=== PATIENT | female | born 2000 | race Caucasian/White ===

== ENCOUNTER 2021-07-24 08:23 | Inpatient (IN) | payer OTHER, SELFPAY ==
[2021-07-24 08:31] VITALS: BP 136/87; PULSE 74; RESP 18; TEMP 36.5; O2SAT 100; BMI 25.0
--- NOTE | 2021-07-24 09:07 | ECG_ITS ---
Test Reason : MED CLEARANCE Blood Pressure : / mmHG Vent. Rate : 061 BPM Atrial Rate : 061 BPM P-R Int : 164 ms QRS Dur : 082 ms QT Int : 414 ms P-R-T Axes : 015 027 014 degrees QTc Int : 416 ms Normal sinus rhythm Normal ECG No previous ECGs available Referred By: Sachi Liao Electronically Signed By:RENATO MATHIS MD
--- NOTE | 2021-07-24 09:14 | ED.PSYCH ---
HPI - Psych General Chief Complaint: Psychiatric Symptoms Stated Complaint: CRISI SI Time Seen by Provider: 07/24/21 09:06 Source: patient Mode of arrival: ambulatory Limitations: no limitations History of Present Illness HPI Narrative: states she took 7 tabs of mix 200mg motrin and thinks 25mg benadryl around 750AM from a travel bag this AM complaint: suicidal ideation and feels depressed Onset (ago): day(s) Duration: getting worse History of same: Yes Relieving factors: none Exacerbating factors: none Context: significant life stressor Associated psychiatric symptoms: depression and suicidal ideation Associated symptoms: denies other symptoms Treatments prior to arrival: none If self harm: admits thoughts of self harm, has plan and has acted on plan Related Data Home Medications Medication Instructions Recorded Confirmed lamotrigine 100 mg tablet 1 tab PO BEDTIME 07/24/21 07/24/21 Allergies Allergy/AdvReac Type Severity Reaction Status Date / Time Unable to Assess Allergy Verified 07/24/21 09:07 Review of Systems Review of Systems: Constitutional : No Fever, No Chills ENT/Mouth : No Ear Pain, No Nasal Congestion, No sore throat Eyes: No Eye Pain, No Swelling, No Redness Cardiovascular : No Chest Pain, No SOB Respiratory : No Cough, No Sputum, No Dyspnea Gastrointestinal : No Nausea, No Vomiting, No Diarrhea, No Hematochezia, No Melena Genitourinary : No Dysuria, No Urinary Frequency, No Hematuria Musculoskeletal : No Myalgias Skin : No Skin Lesions, No rash Neuro : No Weakness, No Numbness, No Paresthesias, No Dizziness, No Headache Psych : positive Anxiety, positive Depression, positive SI no HI Heme/Lymph: No Lymphadenopathy Endocrine : No Polyuria, No Polydipsia All other systems reviewed and are negative [facility] Past Medical History Attestation statement: The following information was validated with the patient. Medical History Bipolar 1 disorder, depressed Social History Social History (Updated 07/24/21 @ 09:52 by Sachi Liao DO) Patient Tobacco Use Status: Current everyday Tobacco user Use of substances other than those prescribed or required for medical reasons: No Advance Directives: No Advance Directives Information Provided: No Healthcare Proxy: No Guardian: No Patient : No Physical Exam Vital Signs: Vital Signs: Last Vital Signs Temp 97.7 F 07/24/21 08:31 Pulse 74 07/24/21 08:31 Resp 18 07/24/21 08:31 BP 136/87 07/24/21 08:31 Pulse Ox 100 07/24/21 08:31 BMI result Body Mass Index 25.0 Appearance: Alert. Oriented X3. No acute distress. Eyes: Pupils equal, round and reactive to light. ENT: Pharynx normal. Neck: Normal inspection. Neck supple. CVS: Normal heart rate and rhythm. Pulses normal. Respiratory: No respiratory distress. Breath sounds normal. Abdomen: Soft and non-tender. Skin: Skin warm and dry. Normal skin color. Normal skin turgor. Extremities: No lower extremity edema. No calf ttp Neuro: Oriented X 3. No motor deficit. No sensory deficit. CN2-12 intact Course Course Course Narrative: Physician observation started at 1031am. Patient placed in physician observation because the patient needed more time for CARE team to evaluate the need for inpatient psych admission. At the time observation was started the patient's vitals were stable, patient is alert and oriented but slightly anxious. Neuro: nonfocal, CV RRR, Lungs clear inpatient bed search per CARE team medically cleared MDM - Psych MDM Narrative Medical decision making narrative: 21 yo female with hx of mood disorder here with reports of depression and SI - at this time states she took about 6 or 7 pills of OTC motrin 200 and benadryl - at this time low risk of overdose will obtain basic labs, EKG, observe. CARE team consult. Dispo per results and their recommendations. Lab Data Result diagrams: 07/24/21 09:54 07/24/21 09:54 Labs: Lab Results 07/24/21 07/24/21 07/24/21 Range/Units 09:39 09:39 09:41 WBC (4.8-10.8) X10*3/uL RBC (4.20-5.50) X10*6/uL Hgb (12.0-16.0) g/dl Hct (37.0-47.0) % MCV (80.0-98.0) fL MCH (27.0-33.0) pg MCHC (31.0-35.0) g/dl RDW (11.0-16.0) % Plt Count (160-400) X10*3/uL MPV (9.4-12.3) fL Immature Gran % (Auto) (0.0-0.4) % Neut % (Auto) (45-73) % Lymph % (Auto) (20-40) % [place] % (Auto) (2-11) % Eos % (Auto) (0-4) % Baso % (Auto) (0-2) % Lymph # (Auto) (1.2-4.9) X10*3/uL [place] # (Auto) (0.1-1.2) X10*3/uL Eos # (Auto) (0.0-0.4) X10*3/uL Baso # (Auto) (0.0-0.2) X10*3/uL Abs Immat Gran (auto) (0.00-0.03) X10*3/uL Absolute Neuts (auto) (2.0-8.3) x10*3/uL Absolute Nucleated RBC (0.0-0.012) X10*3/uL Nucleated RBC % (auto) (0.0-0.2) /100WBC PT (9.9-13.0) SEC INR (0.9-1.1) Sodium (135-145) mmol/L Potassium (3.3-5.1) mmol/L Chloride (96-108) mmol/L Carbon Dioxide (22-29) mmol/L Anion Gap (12-20) BUN (9-16) mg/dL Creatinine (0.5-1.4) mg/dL Estim Creat Clear Calc Estimated GFR Random Glucose (60-115) mg/dL Calcium (8.4-10.2) mg/dL Magnesium (1.6-2.6) mg/dL Total Bilirubin (0.0-1.0) mg/dL Direct Bilirubin (0.0-0.5) mg/dL AST (5-31) U/L ALT (0-31) U/L Alkaline Phosphatase (39-117) U/L Total Protein (6.5-8.0) g/dL Albumin (3.5-5.0) g/dL Urine Test NEGATIVE (NEGATIVE) Salicylates (15-30) mg/dL Urine Opiates Screen Not Detected (Not Detect) Urine Fentanyl Screen Not Detected (Not Detect) Acetaminophen (<30) mcg/mL Ur Barbiturates Screen Not Detected (Not Detect) Ur Phencyclidine Scrn Not Detected (Not Detect) Ur Amphetamines Screen Not Detected (Not Detect) U Benzodiazepines Scrn Not Detected (Not Detect) Urine Cocaine Screen Not Detected (Not Detect) U Marijuana (THC) Screen Not Detected (Not Detect) Ethyl Alcohol mg/dL COVID-19 (ELY) Negative (Negative) COVID-19 Clin Com See Note 07/24/21 07/24/21 07/24/21 Range/Units 09:54 09:54 09:54 WBC 3.7 L (4.8-10.8) X10*3/uL RBC 4.11 L (4.20-5.50) X10*6/uL Hgb 10.7 L (12.0-16.0) g/dl Hct 34.0 L (37.0-47.0) % MCV 82.7 (80.0-98.0) fL MCH 26.0 L (27.0-33.0) pg MCHC 31.5 (31.0-35.0) g/dl RDW 15.7 (11.0-16.0) % Plt Count 287 (160-400) X10*3/uL MPV 9.9 (9.4-12.3) fL Immature Gran % (Auto) 0.3 (0.0-0.4) % Neut % (Auto) 48.1 (45-73) % Lymph % (Auto) 36.8 (20-40) % [place] % (Auto) 7.3 (2-11) % Eos % (Auto) 6.2 H (0-4) % Baso % (Auto) 1.3 (0-2) % Lymph # (Auto) 1.4 (1.2-4.9) X10*3/uL [place] # (Auto) 0.3 (0.1-1.2) X10*3/uL Eos # (Auto) 0.2 (0.0-0.4) X10*3/uL Baso # (Auto) 0.1 (0.0-0.2) X10*3/uL Abs Immat Gran (auto) 0.01 (0.00-0.03) X10*3/uL Absolute Neuts (auto) 1.8 L (2.0-8.3) x10*3/uL Absolute Nucleated RBC 0.000 (0.0-0.012) X10*3/uL Nucleated RBC % (auto) 0.0 (0.0-0.2) /100WBC PT 11.9 (9.9-13.0) SEC INR 1.0 (0.9-1.1) Sodium 138 (135-145) mmol/L Potassium 4.3 (3.3-5.1) mmol/L Chloride 107 (96-108) mmol/L Carbon Dioxide 26 (22-29) mmol/L Anion Gap 9 L (12-20) BUN 11 (9-16) mg/dL Creatinine 0.77 (0.5-1.4) mg/dL Estim Creat Clear Calc 111.4 Estimated GFR > 60 Random Glucose 79 (60-115) mg/dL Calcium 9.7 (8.4-10.2) mg/dL Magnesium 1.9 (1.6-2.6) mg/dL Total Bilirubin 0.2 (0.0-1.0) mg/dL Direct Bilirubin < 0.2 (0.0-0.5) mg/dL AST 16 (5-31) U/L ALT 14 (0-31) U/L Alkaline Phosphatase 39 (39-117) U/L Total Protein 6.7 (6.5-8.0) g/dL Albumin 4.5 (3.5-5.0) g/dL Urine Test (NEGATIVE) Salicylates < 5.0 L (15-30) mg/dL Urine Opiates Screen (Not Detect) Urine Fentanyl Screen (Not Detect) Acetaminophen < 1 (<30) mcg/mL Ur Barbiturates Screen (Not Detect) Ur Phencyclidine Scrn (Not Detect) Ur Amphetamines Screen (Not Detect) U Benzodiazepines Scrn (Not Detect) Urine Cocaine Screen (Not Detect) U Marijuana (THC) Screen (Not Detect) Ethyl Alcohol mg/dL COVID-19 (ELY) (Negative) COVID-19 Clin Com 07/24/21 Range/Units 09:54 WBC (4.8-10.8) X10*3/uL RBC (4.20-5.50) X10*6/uL Hgb (12.0-16.0) g/dl Hct (37.0-47.0) % MCV (80.0-98.0) fL MCH (27.0-33.0) pg MCHC (31.0-35.0) g/dl RDW (11.0-16.0) % Plt Count (160-400) X10*3/uL MPV (9.4-12.3) fL Immature Gran % (Auto) (0.0-0.4) % Neut % (Auto) (45-73) % Lymph % (Auto) (20-40) % [place] % (Auto) (2-11) % Eos % (Auto) (0-4) % Baso % (Auto) (0-2) % Lymph # (Auto) (1.2-4.9) X10*3/uL [place] # (Auto) (0.1-1.2) X10*3/uL Eos # (Auto) (0.0-0.4) X10*3/uL Baso # (Auto) (0.0-0.2) X10*3/uL Abs Immat Gran (auto) (0.00-0.03) X10*3/uL Absolute Neuts (auto) (2.0-8.3) x10*3/uL Absolute Nucleated RBC (0.0-0.012) X10*3/uL Nucleated RBC % (auto) (0.0-0.2) /100WBC PT (9.9-13.0) SEC INR (0.9-1.1) Sodium (135-145) mmol/L Potassium (3.3-5.1) mmol/L Chloride (96-108) mmol/L Carbon Dioxide (22-29) mmol/L Anion Gap (12-20) BUN (9-16) mg/dL Creatinine (0.5-1.4) mg/dL Estim Creat Clear Calc Estimated GFR Random Glucose (60-115) mg/dL Calcium (8.4-10.2) mg/dL Magnesium (1.6-2.6) mg/dL Total Bilirubin (0.0-1.0) mg/dL Direct Bilirubin (0.0-0.5) mg/dL AST (5-31) U/L ALT (0-31) U/L Alkaline Phosphatase (39-117) U/L Total Protein (6.5-8.0) g/dL Albumin (3.5-5.0) g/dL Urine Test (NEGATIVE) Salicylates (15-30) mg/dL Urine Opiates Screen (Not Detect) Urine Fentanyl Screen (Not Detect) Acetaminophen (<30) mcg/mL Ur Barbiturates Screen (Not Detect) Ur Phencyclidine Scrn (Not Detect) Ur Amphetamines Screen (Not Detect) U Benzodiazepines Scrn (Not Detect) Urine Cocaine Screen (Not Detect) U Marijuana (THC) Screen (Not Detect) Ethyl Alcohol < 10 mg/dL COVID-19 (ELY) (Negative) COVID-19 Clin Com ECG Data Attestation: I personally reviewed and interpreted this ECG as follows: ECG interpretation date: 07/24/21 ECG interpretation time: 11:46 Interpretation: Rate: 88 Rhythm: NSR [place]: normal Normal P waves. Normal ARTEMIO. Normal QRS complex. ST T wave : normal no LUIGI qTC: normal prior studies: no acute ischemia The study has been interpreted contemporaneously by me. . Discharge Plan Discharge Clinical Impression: Suicidal ideation Patient Disposition: Still a Patient Prescriptions: No Action lamotrigine 100 mg tablet 1 tab PO BEDTIME 0RF
--- NOTE | 2021-07-24 09:29 | PC.NURSE ---
triage note: patient reports no medical issues, mood d/o dx. reports presently has menses, had pfizer vaccine and needs booster , declines presence of hallucinations denies recent drug or etoh use and contracts for safety here.
--- NOTE | 2021-07-24 09:38 | PC.NURSE ---
contact info: Mother ever Jones [phone] and father Luigi [phone]
[2021-07-24 09:51] LABS: UPreg QC Valid YES; Urine Pregnancy NEGATIVE (NEGATIVE)
[2021-07-24 09:59] LABS: MANUAL DIFF FLAG NO
[2021-07-24 10:02] LABS: Amphetamine Screen Urine Not Detected (Not Detect); Barbiturates, Urine Not Detected (Not Detect); Benzodiazepines Screen Urine Not Detected (Not Detect); Cannabinoid Screen Urine Not Detected (Not Detect); Cocaine Screen Urine Not Detected (Not Detect); Fentanyl, urine Not Detected (Not Detect); Opiate Screen Urine Not Detected (Not Detect); Phencyclidine Screen Urine Not Detected (Not Detect)
[2021-07-24 10:02] LABS: COVID-19 Test Negative (Negative); IDNOW Serial# 08D9AD1C
[2021-07-24 10:05] LABS: Basophils Absolute Auto 0.1 X10*3/uL (0.0-0.2); Basophils Percent Auto 1.3 % (0-2); Eosinophils Absolute Auto 0.2 X10*3/uL (0.0-0.4); Eosinophils Percent Auto 6.2 % (0-4); Hemoglobin 10.7 g/dl (12.0-16.0); Imm Gran Abs Auto 0.01 X10*3/uL (0.00-0.03); Imm Gran Pct Auto 0.3 % (0.0-0.4); Lymphocytes Absolute Auto 1.4 X10*3/uL (1.2-4.9); Lymphocytes Percent Auto 36.8 % (20-40); Mean Corpuscular HGB Conc 31.5 g/dl (31.0-35.0); Mean Corpuscular Volume 82.7 fL (80.0-98.0); Mean Platelet Volume 9.9 fL (9.4-12.3); Monocytes Absolute Auto 0.3 X10*3/uL (0.1-1.2); Monocytes Percent Auto 7.3 % (2-11); Neutrophils Absolute Auto 1.8 x10*3/uL (2.0-8.3); Neutrophils Percent Auto 48.1 % (45-73); Platelet Count 287 X10*3/uL (160-400); Red Blood Count 4.11 X10*6/uL (4.20-5.50); Red Cell Distribution Width 15.7 % (11.0-16.0); White Blood Count 3.7 X10*3/uL (4.8-10.8)
[2021-07-24 10:06] LABS: Prothrombin Time 11.9 SEC (9.9-13.0)
[2021-07-24 10:12] LABS: Ethanol < 10 mg/dL
[2021-07-24 10:16] LABS: Acetaminophen LAB < 1 mcg/mL (<30); Alanine Aminotransferase 14 U/L (0-31); Albumin Level 4.5 g/dL (3.5-5.0); Alkaline Phosphatase 39 U/L (39-117); Anion Gap 9 (12-20); Aspartate Amino Transferase 16 U/L (5-31); Bilirubin Direct < 0.2 mg/dL (0.0-0.5); Bilirubin Total 0.2 mg/dL (0.0-1.0); Blood Urea Nitrogen 11 mg/dL (9-16); Calcium 9.7 mg/dL (8.4-10.2); Carbon Dioxide 26 mmol/L (22-29); Chloride 107 mmol/L (96-108); Creatinine Clr Calc Pharmacy 111.4; Estimated Glomerular Filt Rate > 60; Glucose Random 79 mg/dL (60-115); Magnesium 1.9 mg/dL (1.6-2.6); Potassium 4.3 mmol/L (3.3-5.1); Salicylate < 5.0 mg/dL (15-30); Sodium 138 mmol/L (135-145); Total Protein 6.7 g/dL (6.5-8.0)
--- NOTE | 2021-07-24 14:05 | MHC.CARE ---
Patient evaluated by the CARE Team to require an inpatient hospitalization, written assessment to follow.
[2021-07-24 15:45] VITALS: BP 96/56; PULSE 67; TEMP 36.5; O2SAT 100
--- NOTE | 2021-07-24 18:24 | PC.NURSE ---
Nurse to nurse given to [facility] PAUL Baig
[2021-07-24 19:20] VITALS: BP 134/75; PULSE 68; RESP 18; TEMP 36.4; O2SAT 100
[2021-07-24 19:21] VITALS: BMI 24.5
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
[2021-07-24] MEDS: hydrOXYzine HCL 25 MG TABLET PO (21:34)
[2021-07-24] MEDS: lamoTRIgine 25 MG TABLET 150 MG PO (21:35)
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
[2021-07-25 08:30] VITALS: BP 119/73; PULSE 70; RESP 18; O2SAT 99
[2021-07-25 08:51] LABS: Magnesium 1.9 mg/dL (1.6-2.6)
[2021-07-25 09:14] LABS: Free T4 (Free Thyroxine) 1.06 ng/dL (0.71-1.85); Thyroid Stimulating Hormone 1.05 uIU/mL (0.32-4.0)
[2021-07-25 09:30] LABS: Folate 15.3 ng/mL (> or = 4.0); Vitamin B12 509 pg/mL (200-900)
--- NOTE | 2021-07-25 14:26 | P.PNPSI_ITS ---
Subjective Subjective Date of Service: 07/25/21 Reason For Visit: SI, Depression, OD Interim History: pt encountered doing art in common area. amenable to interview. polite, calm, cooperative. spends a fair amount of time educating pt about antidepressants in bipolar disorder, evidence-based mood stabilizers. discuss some of her medication history. reports she had been on lithium but gained 40 lbs on it and is not interested in trying it again. concern over SSRI or SNRI use provoking luis enrique discussed, in someone without mood stabilizer (MD informed pt that lamictal is not an evidence-base mood-stabilizer but rather an anti-depressant as used in bipolar disorder). ultimately, R/B of wellbutrin discussed, including Sz, agitation/insomnia. pt agrees to start this afternoon. per staff, s/p OD on benadryl and some ibuprofen. denies SI/HI/AVH/ slept well overnight. Mental Status Exam Mental Status Exam Narrative: appropriately dressed and groomed. cooperative. no PMA/PMR. speech nml in rate, amount, loudness, tone, latency. thoughts linear and logical without ev idence of paranoia or delusion. affect full range, normo-intense, non-labile. mood anxious. denies SI. no HI/AVH expressed. Diagnostics Vital Signs (24Hr): Vital Signs - 24 hr 07/24/21 15:45 07/24/21 19:20 07/25/21 08:30 Temperature 97.7 F 97.5 F Pulse Rate 67 68 70 Respiratory Rate 18 18 Blood Pressure 96/56 L 134/75 119/73 Pulse Oximetry 100 100 99 BMI result Body Mass Index 24.5 Labs Results: 07/24/21 09:54 07/24/21 09:54 Labs: Laboratory Results - last 48 hr 07/24/21 07/24/21 07/24/21 09:39 09:39 09:41 WBC RBC Hgb Hct MCV MCH MCHC RDW Plt Count MPV Immature Gran % (Auto) Neut % (Auto) Lymph % (Auto) [place] % (Auto) Eos % (Auto) Baso % (Auto) Lymph # (Auto) [place] # (Auto) Eos # (Auto) Baso # (Auto) Abs Immat Gran (auto) Absolute Neuts (auto) Absolute Nucleated RBC Nucleated RBC % (auto) PT INR Sodium Potassium Chloride Carbon Dioxide Anion Gap BUN Creatinine Estim Creat Clear Calc Estimated GFR Random Glucose Calcium Magnesium Total Bilirubin Direct Bilirubin AST ALT Alkaline Phosphatase Total Protein Albumin Vitamin B12 Folate TSH Free T4 Urine Test NEGATIVE Salicylates Urine Opiates Screen Not Detected Urine Fentanyl Screen Not Detected Acetaminophen Ur Barbiturates Screen Not Detected Ur Phencyclidine Scrn Not Detected Ur Amphetamines Screen Not Detected U Benzodiazepines Scrn Not Detected Urine Cocaine Screen Not Detected U Marijuana (THC) Screen Not Detected Ethyl Alcohol COVID-19 (ELY) Negative COVID-19 Clin Com See Note 07/24/21 07/24/21 07/24/21 09:54 09:54 09:54 WBC 3.7 L RBC 4.11 L Hgb 10.7 L Hct 34.0 L MCV 82.7 MCH 26.0 L MCHC 31.5 RDW 15.7 Plt Count 287 MPV 9.9 Immature Gran % (Auto) 0.3 Neut % (Auto) 48.1 Lymph % (Auto) 36.8 [place] % (Auto) 7.3 Eos % (Auto) 6.2 H Baso % (Auto) 1.3 Lymph # (Auto) 1.4 [place] # (Auto) 0.3 Eos # (Auto) 0.2 Baso # (Auto) 0.1 Abs Immat Gran (auto) 0.01 Absolute Neuts (auto) 1.8 L Absolute Nucleated RBC 0.000 Nucleated RBC % (auto) 0.0 PT 11.9 INR 1.0 Sodium 138 Potassium 4.3 Chloride 107 Carbon Dioxide 26 Anion Gap 9 L BUN 11 Creatinine 0.77 Estim Creat Clear Calc 111.4 Estimated GFR > 60 Random Glucose 79 Calcium 9.7 Magnesium 1.9 Total Bilirubin 0.2 Direct Bilirubin < 0.2 AST 16 ALT 14 Alkaline Phosphatase 39 Total Protein 6.7 Albumin 4.5 Vitamin B12 Folate TSH Free T4 Urine Test Salicylates < 5.0 L Urine Opiates Screen Urine Fentanyl Screen Acetaminophen < 1 Ur Barbiturates Screen Ur Phencyclidine Scrn Ur Amphetamines Screen U Benzodiazepines Scrn Urine Cocaine Screen U Marijuana (THC) Screen Ethyl Alcohol COVID-19 (ELY) COVID-19 Clin Com 07/24/21 07/25/21 07/25/21 09:54 08:12 08:12 WBC RBC Hgb Hct MCV MCH MCHC RDW Plt Count MPV Immature Gran % (Auto) Neut % (Auto) Lymph % (Auto) [place] % (Auto) Eos % (Auto) Baso % (Auto) Lymph # (Auto) [place] # (Auto) Eos # (Auto) Baso # (Auto) Abs Immat Gran (auto) Absolute Neuts (auto) Absolute Nucleated RBC Nucleated RBC % (auto) PT INR Sodium Potassium Chloride Carbon Dioxide Anion Gap BUN Creatinine Estim Creat Clear Calc Estimated GFR Random Glucose Calcium Magnesium 1.9 Total Bilirubin Direct Bilirubin AST ALT Alkaline Phosphatase Total Protein Albumin Vitamin B12 509 Folate 15.3 TSH 1.05 Free T4 1.06 Urine Test Salicylates Urine Opiates Screen Urine Fentanyl Screen Acetaminophen Ur Barbiturates Screen Ur Phencyclidine Scrn Ur Amphetamines Screen U Benzodiazepines Scrn Urine Cocaine Screen U Marijuana (THC) Screen Ethyl Alcohol < 10 COVID-19 (ELY) COVID-19 Clin Com Medications Medications Current Medications Acetaminophen (Acetaminophen 325 Mg Tablet) 650 mg PO Q6H PRN PRN Reason: Headache/Pain Mild Scale (1-3) Al Hydroxide/Mg Hydroxide (Magnesium Hydrox/Alum Hydrox 30 Ml Oral.Susp) 30 ml PO Q6H PRN PRN Reason: Heartburn/Nausea Bupropion HCl (Bupropion Hcl Xl 150 Mg Tab.Er.24h) 150 mg PO DAILY ELODIA Hydroxyzine HCl (Hydroxyzine Hcl 25 Mg Tablet) 25 mg PO Q6H PRN PRN Reason: Anxiety Last Admin: 07/24/21 21:34 Dose: 25 mg Documented by: Lamotrigine (Lamotrigine 25 Mg Tablet) 150 mg PO BEDTIME ELODIA Last Admin: 07/24/21 21:35 Dose: 150 mg Documented by: Lorazepam (Lorazepam 0.5 Mg Tablet) 0.5 mg PO Q8H PRN PRN Reason: anxiety Magnesium Hydroxide (Milk Of Magnesia 30 Ml Oral.Susp) 30 ml PO DAILY PRN PRN Reason: Constipation Trazodone HCl (Trazodone Hcl 50 Mg Tablet) 50 mg PO BEDTIME PRN PRN Reason: Insomnia Allergies Allergies Allergy/AdvReac Type Severity Reaction Status Date / Time No Known Allergies Allergy Verified 07/24/21 19:50 Assessment & Plan Assessment & Plan (1) Bipolar 1 disorder, depressed: Status: Acute Code(s): F31.9 - Bipolar disorder, unspecified Plan Plan: decided on wellbutrin trial for depression. Recently increased lamictal one week ago to 150 mg QHS. Continue ativan 0.5 mg QD PRN for anxiety, sleep. No illicit substance use concerns. Denies alcohol use. I spent minutes with the patient and/or on the patient floor today, greater than?50% of which was spent counseling/coordinating care. Reason for contiued inpatient stay Substantial Risk for: harm to self, inability to function and rapid decompensation
--- NOTE | 2021-07-25 15:48 | PC.NURSE ---
Patient declined any nicotine replacement therapy.
[2021-07-25] MEDS: buPROPion HCl XL 150 MG TAB.ER.24H PO (15:57)
[2021-07-25 18:00] VITALS: BP 128/80; PULSE 80; RESP 18; TEMP 37; O2SAT 99
[2021-07-25] MEDS: lamoTRIgine 25 MG TABLET 150 MG PO (21:26)
[2021-07-25] MEDS: hydrOXYzine HCL 25 MG TABLET PO (21:27)
[2021-07-25] MEDS: LORazepam 0.5 MG TABLET PO (21:27)
[2021-07-25] MEDS: traZODone HCL 50 MG TABLET PO (21:27)
[2021-07-26] MEDS: buPROPion HCl XL 150 MG TAB.ER.24H PO (09:18)
[2021-07-26 09:37] VITALS: BP 112/58; PULSE 69; RESP 15; TEMP 37.1; O2SAT 100
--- NOTE | 2021-07-26 13:14 | HO.PSYCHPN ---
Subjective Subjective Date of Service: 07/26/21 Reason For Visit: SI, Depression, OD Interim History: pt reports she continues to feel reasonably well. considering discharge at some point int he next several days. mood fine, no SI. no side effects from wellbutrin noted. per staff, dep/anx 11/17, future-oriented. no SI/HI/AVH. attending groups. slept well overnight. started wellbutrin yesterday. Mental Status Exam Mental Status Exam Narrative: appropriately dressed and groomed. cooperative. no PMA/PMR. speech nml in rate, amount, loudness, tone, latency. thoughts linear and logical without evidence of paranoia or delusion. affect full range, normo-intense, non-labile. mood fine. denies SI. no HI/AVH expressed. Diagnostics Vital Signs (24Hr): Vital Signs - 24 hr 07/25/21 18:00 07/26/21 09:37 Temperature 98.6 F 98.7 F Pulse Rate 80 69 Respiratory Rate 18 15 Blood Pressure 128/80 112/58 L Pulse Oximetry 99 100 BMI result Body Mass Index 24.5 Labs Results: 07/24/21 09:54 07/24/21 09:54 Labs: Laboratory Results - last 48 hr 07/25/21 07/25/21 08:12 08:12 Magnesium 1.9 Vitamin B12 509 Folate 15.3 TSH 1.05 Free T4 1.06 Medications Medications Current Medications Acetaminophen (Acetaminophen 325 Mg Tablet) 650 mg PO Q6H PRN PRN Reason: Headache/Pain Mild Scale (1-3) Al Hydroxide/Mg Hydroxide (Magnesium Hydrox/Alum Hydrox 30 Ml Oral.Susp) 30 ml PO Q6H PRN PRN Reason: Heartburn/Nausea Bupropion HCl (Bupropion Hcl Xl 150 Mg Tab.Er.24h) 150 mg PO DAILY ELODIA Last Admin: 07/26/21 09:18 Dose: 150 mg Documented by: Hydroxyzine HCl (Hydroxyzine Hcl 25 Mg Tablet) 25 mg PO Q6H PRN PRN Reason: Anxiety Last Admin: 07/25/21 21:27 Dose: 25 mg Documented by: Lamotrigine (Lamotrigine 25 Mg Tablet) 150 mg PO BEDTIME ELODIA Last Admin: 07/25/21 21:26 Dose: 150 mg Documented by: Lorazepam (Lorazepam 0.5 Mg Tablet) 0.5 mg PO Q8H PRN PRN Reason: anxiety Last Admin: 07/25/21 21:27 Dose: 0.5 mg Documented by: Magnesium Hydroxide (Milk Of Magnesia 30 Ml Oral.Susp) 30 ml PO DAILY PRN PRN Reason: Constipation Trazodone HCl (Trazodone Hcl 25 Mg Halftab) 25 mg PO BEDTIME PRN PRN Reason: Insomnia Allergies Allergies Allergy/AdvReac Type Severity Reaction Status Date / Time No Known Allergies Allergy Verified 07/24/21 19:50 Assessment & Plan Assessment & Plan (1) Bipolar 1 disorder, depressed: Status: Acute Code(s): F31.9 - Bipolar disorder, unspecified Plan Plan: decided on wellbutrin trial for depression, started 150 mg daily 07/25. increase dose to 300 mg daily as of 07/28. Recently increased lamictal one week ago to 150 mg QHS. Continue ativan 0.5 mg QD PRN for anxiety, sleep. No illicit substance use concerns. Denies alcohol use. I spent minutes with the patient and/or on the patient floor today, greater than?50% of which was spent counseling/coordinating care. Reason for contiued inpatient stay Substantial Risk for: rapid decompensation
[2021-07-26] MEDS: Milk of Magnesia 30 ML ORAL.SUSP PO (18:28)
[2021-07-26] MEDS: traZODone HCL 25 MG HALFTAB PO (21:34)
[2021-07-26] MEDS: lamoTRIgine 25 MG TABLET 150 MG PO (21:34)
[2021-07-26] MEDS: LORazepam 0.5 MG TABLET PO (21:35)
[2021-07-26 21:38] VITALS: BP 106/55; PULSE 72; TEMP 36.4; O2SAT 98
[2021-07-27] MEDS: buPROPion HCl XL 150 MG TAB.ER.24H PO (08:36)
[2021-07-27 09:29] VITALS: BP 118/71; PULSE 69; RESP 16; TEMP 36.4; O2SAT 99
--- NOTE | 2021-07-27 12:19 | HO.PSYCHPN ---
Subjective Subjective Date of Service: 07/27/21 Reason For Visit: SI, Depression, OD Interim History: pt reports she continues to feel well, would like to discharge tomorrow. sees ravin and a therapist regularly, will plan to follow up with them after discharge. wellbutrin to be increased to 300 mg daily as of tomorrow. pt also asks that lamictal be increased to 175 mg tonight, saying that has been the plan with ravin. request is accommodated as pt reports it has been at least 1.5 weeks since last increase. no other complaints or requests. Mental Status Exam Mental Status Exam Narrative: appropriately dressed and groomed. cooperative. no PMA/PMR. speech nml in rate, amount, loudness, tone, latency. thoughts linear and logical without evidence of paranoia or delusion. affect full range, normo-intense, non-labile. no SI/HI/AVH expressed. Diagnostics Vital Signs (24Hr): Vital Signs - 24 hr 07/26/21 21:38 07/27/21 09:29 Temperature 97.6 F 97.5 F Pulse Rate 72 69 Respiratory Rate 16 Blood Pressure 106/55 L 118/71 Pulse Oximetry 98 99 BMI result Body Mass Index 24.5 Labs Results: 07/24/21 09:54 07/24/21 09:54 Medications Medications Current Medications Acetaminophen (Acetaminophen 325 Mg Tablet) 650 mg PO Q6H PRN PRN Reason: Headache/Pain Mild Scale (1-3) Al Hydroxide/Mg Hydroxide (Magnesium Hydrox/Alum Hydrox 30 Ml Oral.Susp) 30 ml PO Q6H PRN PRN Reason: Heartburn/Nausea Bupropion HCl (Bupropion Hcl Xl 300 Mg Tab.Er.24h) 300 mg PO DAILY ELODIA Hydroxyzine HCl (Hydroxyzine Hcl 25 Mg Tablet) 25 mg PO Q6H PRN PRN Reason: Anxiety Last Admin: 07/25/21 21:27 Dose: 25 mg Documented by: Lamotrigine (Lamotrigine 25 Mg Tablet) 175 mg PO BEDTIME ELODIA Lorazepam (Lorazepam 0.5 Mg Tablet) 0.5 mg PO Q8H PRN PRN Reason: anxiety Last Admin: 07/26/21 21:35 Dose: 0.5 mg Documented by: Magnesium Hydroxide (Milk Of Magnesia 30 Ml Oral.Susp) 30 ml PO DAILY PRN PRN Reason: Constipation Last Admin: 07/26/21 18:28 Dose: 30 ml Documented by: Trazodone HCl (Trazodone Hcl 25 Mg Halftab) 25 mg PO BEDTIME PRN PRN Reason: Insomnia Last Admin: 07/26/21 21:34 Dose: 25 mg Documented by: Allergies Allergies Allergy/AdvReac Type Severity Reaction Status Date / Time No Known Allergies Allergy Verified 07/24/21 19:50 Assessment & Plan Assessment & Plan (1) Bipolar 1 disorder, depressed: Status: Acute Code(s): F31.9 - Bipolar disorder, unspecified Plan Plan: decided on wellbutrin trial for depression, started 150 mg daily 07/25. increase dose to 300 mg daily as of 07/28. Recently increased lamictal one week ago to 150 mg QHS, increased again to 175 mg QHS as of 07/27. Continue ativan 0.5 mg QD PRN for anxiety, sleep. No illicit substance use concerns. Denies alcohol use. I spent minutes with the patient and/or on the patient floor today, greater than?50% of which was spent counseling/coordinating care. Reason for contiued inpatient stay Substantial Risk for: inability to function and rapid decompensation
[2021-07-27 12:32] VITALS: BMI 24.7
[2021-07-27 21:27] VITALS: BP 100/61; PULSE 72; TEMP 36.7; O2SAT 99
[2021-07-27] MEDS: traZODone HCL 25 MG HALFTAB PO (21:38)
[2021-07-27] MEDS: LORazepam 0.5 MG TABLET PO (21:38)
[2021-07-27] MEDS: lamoTRIgine 25 MG TABLET 175 MG PO (21:38)
[2021-07-28] MEDS: buPROPion HCl XL 300 MG TAB.ER.24H PO (08:44)
--- NOTE | 2021-07-28 10:06 | MHC.RECOVSUP ---
Recovery Support note: This business writer met with patient to discuss marijuana recovery and recovery coaching. Patient accepted information on [facility] and recovery coaching. Discussed only support communities for marijuana recovery. Patient will be referred to a legal recovery specialist through [facility] and will be contacted after discharge.
[2021-07-28 11:36] VITALS: BP 113/57; PULSE 83; RESP 16; TEMP 36.7; O2SAT 97
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
== END 2021-07-28 14:30 | disposition home or self-care (01) | DRG 885 ==
LOC: HO.ED 11:47 → HO.PADLT16 18:50
PROVIDERS: Registered Nurse; Admitting Provider Psychiatry & Neurology Psychiatry; Emergency Provider Emergency Medicine; PCP Pediatrics Adolescent Medicine; Visit Provider Psychiatry & Neurology Psychiatry
DX: F31.30 Bipolar disorder, current episode depressed, mild or moderate severity, unspecified (principal); R45.851 Suicidal ideations; Z20.822 Contact with and (suspected) exposure to COVID-19; Z79.899 Other long term (current) drug therapy
CPT/HCPCS: 36415; 80048; 80076; 80143; 80179; 80307; 81025; 82077; 82607; 82746; 83735; 84439; 84443; 85025; 85610; 87635; 93005; 99285

== ENCOUNTER 2024-01-08 11:20 | Emergency (ER) | payer OTHER, SELFPAY ==
--- NOTE | ~2024-01-08 | XR_ITS ---
EXAMINATION: XR CHEST CLINICAL INFORMATION: Vomiting after drug overdose COMPARISON: None available. TECHNIQUE: 2 views of the chest were obtained. FINDINGS: Lungs clear. No pleural effusions. No evidence for pulmonary edema. Heart and pulmonary vessels normal. XR/XR chest 2V IMPRESSION: Unremarkable examination.
--- NOTE | 2024-01-08 11:26 | ED_ITS ---
HPI - Psych General Chief Complaint: Psychiatric Symptoms Stated Complaint: crisis Time Seen by Provider: 01/08/24 12:03 Source: patient, family and old records reviewed Mode of arrival: ambulatory Limitations: no limitations History of Present Illness ED Provider: ZIYAD WONG Narrative: 23 yo female with PMH of significant bipolar on wellbutrin, lamictal, risperidone followed by Burton who has issues surrounding THC use - luis enrique and psychosis. Recently started to vape again 3 weeks ago and went into tailspin tried to stop about a week ago and then became depressed withdrawn and suicidal. Mom and her note this is a continual pattern with prior attempts. At 1038pm she ingested tylenol 500mg she thinks at most 10 pills. Mom came home in between jobs and discovered this patient then threw up about 8 pills. Mom corroborates amounts and times. No other ingestions or injuries. complaint: suicidal ideation Onset (ago): hour(s) (1038pm today) Duration: constant History of same: Yes Relieving factors: none Exacerbating factors: drug use Context: other Associated psychiatric symptoms: depression and suicidal ideation Associated symptoms: denies other symptoms Treatments prior to arrival: none If self harm: admits thoughts of self harm, has plan and has acted on plan Related Data Home Medications ?Medication ?Instructions ?Recorded ?Confirmed bupropion HCl 300 mg 24 hr tablet, 300 mg PO DAILY 01/08/24 01/08/24 extended release lamotrigine 25 mg tablet 200 mg PO BEDTIME 01/08/24 01/08/24 Allergies Allergy/AdvReac Type Severity Reaction Status Date / Time No Known Allergies Allergy Verified 01/08/24 11:30 Review of Systems 2 Review of Systems: Constitutional : No Fever, No Chills ENT/Mouth : No Ear Pain, No Nasal Congestion, No sore throat Eyes: No Eye Pain, No Swelling, No Redness Cardiovascular : No Chest Pain, No SOB Respiratory : No Cough, No Sputum, No Dyspnea Gastrointestinal : No Nausea, No Vomiting, No Diarrhea, No Hematochezia, No Melena Genitourinary : No Dysuria, No Urinary Frequency, No Hematuria Musculoskeletal : No Myalgias Skin : No Skin Lesions, No rash Neuro : No Weakness, No Numbness, No Paresthesias, No Dizziness, No Headache Psych : positive Anxiety, positive Depression, positive SI no HI Heme/Lymph: No Lymphadenopathy Endocrine : No Polyuria, No Polydipsia All other systems reviewed and are negative [facility] Past Medical History Attestation statement: The following information was validated with the patient. Source: old records reviewed Medical History Bipolar 1 disorder, depressed Social History Social History Household Members: Other Household Members Other:: Lives in a dorm, but has been living with parents and 2 siblings. Housing: House Housing Other:: Dorm or single family home with parents. Do you presently have visiting nurse or other home services: No Patient Tobacco Use Status: Never used Tobacco Years Smoked: 4 years Smoked in Last 30 Days: No e-Cigarette/Vaping Use: Currently Using Second Hand Smoke Exposure: No Use of substances other than those prescribed or required for medical reasons: Yes Substance Use Type: Marijuana Substance Use Frequency: Recent Binge Last Used Substance: Days (ago) Any prior treatment program specific to substance use: Yes Advance Directives: No Do you have a plan to hurt others: No Plan service: No Sexual orientation: Did not discuss. Physical Exam 2 Vital Signs: Vital Signs: Last Vital Signs Temp 98.2 F 01/08/24 16:00 Pulse 86 01/08/24 16:00 Resp 18 01/08/24 16:00 BP 115/70 01/08/24 16:00 Pulse Ox 100 01/08/24 16:00 O2 Del Method Room Air 01/08/24 16:00 BMI result Body Mass Index 21.1 Appearance: Alert. Oriented X3. No acute distress. Eyes: Pupils equal, round and reactive to light. ENT: Pharynx normal. Neck: Normal inspection. Neck supple. CVS: Normal heart rate and rhythm. Pulses normal. Respiratory: No respiratory distress. Breath sounds normal. Abdomen: Soft and nontender. Skin: Skin warm and dry. Normal skin color. Normal skin turgor. Extremities: No lower extremity edema. No calf ttp Neuro: Oriented X 3. No motor deficit. No sensory deficit. CN2-12 intact Course Course Course Narrative: This is a Rapid Medical Examination (RME) performed by Azalea Swift PA-C in triage. Full HPI, ROS, assessment and treatment plan per primary provider in the Main ED. 23 yo female here for crisis eval. 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 admits to ingesting a handful of tylenol. she began to vomit after ingestion. admits this is her second attempt at suicide. denies HI. Denies AH/VH/TH. mahamed ilicit substance use or etoh consumption. + well appearing in triage. abd slightly ttp of epigastric region without rebound/ guarding. Plan: ekg, labs, UA, UDS ordered. plan for medical clearance for care team. Reevaluation(s) Reevaluation #1: medically cleared no rise in APAP 4 hour level negative Medications Administered Discontinued Medications Generic Name Dose Route Start Last Admin Trade Name Freq PRN Reason Stop Dose Admin Bupropion HCl 300 mg 01/08/24 16:42 01/08/24 18:17 Bupropion Hcl Xl 300 Mg Tab.Er.24h PO 01/08/24 16:43 Not Given ONCE ONE Charcoal 50 gm 01/08/24 12:04 01/08/24 12:25 Activated Charcoal 50 Gm/240 Ml Oral.Susp PO 01/08/24 12:05 50 gm ONCE ONE Administration Sodium Chloride 1,000 mls @ 999 mls/hr 01/08/24 12:04 01/08/24 15:24 Ns IV 01/08/24 13:04 Infused .Q1H1M ONE Infusion Ondansetron HCl 4 mg 01/08/24 12:04 01/08/24 12:25 Ondansetron Hcl 4 Mg/2 Ml Vial IVPUSH 01/08/24 12:05 4 mg ONCE ONE Administration Medical Decision Making Medical Decision Making MDM Narrative: 23 yo female with bipolar hx of SI attempts and declining mental health disease in setting of THC use and then withdrawal from it - at this time SI attempt and overdose of approx 5,000mg tylenol at 1038pm. At this time initial charcoal ordered, tox labs, EKG - IVF and zofran. Repeat labs with 4 hour level checked to see if NAC is needed. There is a very distinct time for ingestion. Will place on section 12. Differential Diagnosis Differential Diagnoses: The differential diagnosis associated with the presentation includes SI attempt, APAP overdose Admission/Observation Consideration of admission/observation: Escalation of care including admission/observation considered physician observation started at 430pm pending care team observation ended at 637pm was cleared by CARE team the parents want to take her home - she appointment with psychiatry on Jan 13. The parents are going to take time off from work and get a lock box they are advocating for discharge. Consult Healthcare Provider Management of the patient was discussed with: Behavioral Health Provider Lab Data MDM Lab Attestation statement: I reviewed the patient's lab results. 01/08/24 11:56 01/08/24 13:03 Labs: Lab Results 01/08/24 01/08/24 01/08/24 Range/Units 11:56 13:03 15:34 WBC 6.0 (4.8-10.8) X10*3/uL RBC 3.94 L (4.20-5.50) X10*6/uL Hgb 11.5 L (12.0-16.0) g/dl Hct 34.7 L (37.0-47.0) % MCV 88.1 (80.0-98.0) fL MCH 29.2 (27.0-33.0) pg MCHC 33.1 (31.0-35.0) g/dl RDW 13.2 (11.0-16.0) % Plt Count 270 (160-400) X10*3/uL MPV 9.8 (9.4-12.3) fL Immature Gran % (Auto) 0.2 (0.0-0.4) % Neut % (Auto) 68.8 (45-73) % Lymph % (Auto) 22.2 (20-40) % [place] % (Auto) 7.3 (2-11) % Eos % (Auto) 0.7 (0-4) % Baso % (Auto) 0.8 (0-2) % Lymph # (Auto) 1.3 (1.2-4.9) X10*3/uL [place] # (Auto) 0.4 (0.1-1.2) X10*3/uL Eos # (Auto) 0.0 (0.0-0.4) X10*3/uL Baso # (Auto) 0.1 (0.0-0.2) X10*3/uL Abs Immat Gran (auto) 0.01 (0.00-0.03) X10*3/uL Absolute Neuts (auto) 4.2 (2.0-8.3) x10*3/uL Absolute Nucleated RBC 0.000 (0.0-0.012) X10*3/uL Nucleated RBC % (auto) 0.0 (0.0-0.2) /100WBC Sodium 140 139 (135-145) mmol/L Potassium 3.8 3.7 (3.3-5.1) mmol/L Chloride 105 105 (96-108) mmol/L Carbon Dioxide 26 26 (22-29) mmol/L Anion Gap 13 12 (12-20) BUN 6 L 6 L (9-16) mg/dL Creatinine 0.76 0.73 (0.5-1.4) mg/dL Estim Creat Clear Calc 110.3 114.8 Estimated GFR > 60 > 60 Random Glucose 87 134 H (60-115) mg/dL Calcium 10.4 H D 9.2 D (8.4-10.2) mg/dL Magnesium 2.0 (1.6-2.6) mg/dL Total Bilirubin 0.4 0.4 0.2 (0.0-1.0) mg/dL Direct Bilirubin 0.1 < 0.2 (0.0-0.5) mg/dL AST 12 11 10 (5-31) U/L ALT 9 7 8 (0-31) U/L Alkaline Phosphatase 35 L 34 L 31 L (39-117) U/L Total Protein 7.8 7.0 7.0 (6.5-8.0) g/dL Albumin 5.1 H 4.5 4.4 (3.5-5.0) g/dL Lipase 12 (8-78) U/L Urine Color Urine Appearance Urine pH (5.0-9.0) Ur Specific [place] (1.005-1.025) Urine Protein (Neg-Trace) mg/dL Urine Glucose (UA) (Negative) mg/dL Urine Ketones (Negative) mg/dL Urine Blood (Negative) Urine Nitrite (Negative) Ur Leukocyte Esterase (Negative) Urine RBC (0-2) /HPF Urine WBC (0-5) /HPF Ur Squamous Epith Cells (0-2) /HPF Urine Bacteria (None Seen) Hyaline Casts (0-2) /LPF Urine Test (NEGATIVE) Salicylates < 5.0 L < 5.0 L (15-30) mg/dL Urine Opiates Screen Not Detected (Not Detect) Ur Buprenorphine Scrn Not Detected (Not Detect) ng/mL Ur Oxycodone Screen Not Detected (Not Detect) ng/mL Urine Methadone Screen Not Detected (Not Detect) ng/mL Urine Fentanyl Screen Not Detected (Not Detect) Acetaminophen < 3 < 3 < 3 (<30) mcg/mL Ur Barbiturates Screen Not Detected (Not Detect) Ur Phencyclidine Scrn Not Detected (Not Detect) Ur Amphetamines Screen Not Detected (Not Detect) U Benzodiazepines Scrn Not Detected (Not Detect) Urine Cocaine Screen Not Detected (Not Detect) U Marijuana (THC) Screen POSITIVE H (Not Detect) Ethyl Alcohol < 10 mg/dL 01/08/24 01/08/24 Range/Units 15:35 15:36 WBC (4.8-10.8) X10*3/uL RBC (4.20-5.50) X10*6/uL Hgb (12.0-16.0) g/dl Hct (37.0-47.0) % MCV (80.0-98.0) fL MCH (27.0-33.0) pg MCHC (31.0-35.0) g/dl RDW (11.0-16.0) % Plt Count (160-400) X10*3/uL MPV (9.4-12.3) fL Immature Gran % (Auto) (0.0-0.4) % Neut % (Auto) (45-73) % Lymph % (Auto) (20-40) % [place] % (Auto) (2-11) % Eos % (Auto) (0-4) % Baso % (Auto) (0-2) % Lymph # (Auto) (1.2-4.9) X10*3/uL [place] # (Auto) (0.1-1.2) X10*3/uL Eos # (Auto) (0.0-0.4) X10*3/uL Baso # (Auto) (0.0-0.2) X10*3/uL Abs Immat Gran (auto) (0.00-0.03) X10*3/uL Absolute Neuts (auto) (2.0-8.3) x10*3/uL Absolute Nucleated RBC (0.0-0.012) X10*3/uL Nucleated RBC % (auto) (0.0-0.2) /100WBC Sodium (135-145) mmol/L Potassium (3.3-5.1) mmol/L Chloride (96-108) mmol/L Carbon Dioxide (22-29) mmol/L Anion Gap (12-20) BUN (9-16) mg/dL Creatinine (0.5-1.4) mg/dL Estim Creat Clear Calc Estimated GFR Random Glucose (60-115) mg/dL Calcium (8.4-10.2) mg/dL Magnesium (1.6-2.6) mg/dL Total Bilirubin (0.0-1.0) mg/dL Direct Bilirubin (0.0-0.5) mg/dL AST (5-31) U/L ALT (0-31) U/L Alkaline Phosphatase (39-117) U/L Total Protein (6.5-8.0) g/dL Albumin (3.5-5.0) g/dL Lipase (8-78) U/L Urine Color Yellow Urine Appearance Clear Urine pH 7.0 (5.0-9.0) Ur Specific [place] <= 1.005 (1.005-1.025) Urine Protein Negative (Neg-Trace) mg/dL Urine Glucose (UA) Negative (Negative) mg/dL Urine Ketones Trace (Negative) mg/dL Urine Blood Trace H (Negative) Urine Nitrite Negative (Negative) Ur Leukocyte Esterase Negative (Negative) Urine RBC 3-5 H (0-2) /HPF Urine WBC 0-5 (0-5) /HPF Ur Squamous Epith Cells 6-10 (0-2) /HPF Urine Bacteria None Seen (None Seen) Hyaline Casts 0-2 (0-2) /LPF Urine Test NEGATIVE (NEGATIVE) Salicylates (15-30) mg/dL Urine Opiates Screen (Not Detect) Ur Buprenorphine Scrn (Not Detect) ng/mL Ur Oxycodone Screen (Not Detect) ng/mL Urine Methadone Screen (Not Detect) ng/mL Urine Fentanyl Screen (Not Detect) Acetaminophen (<30) mcg/mL Ur Barbiturates Screen (Not Detect) Ur Phencyclidine Scrn (Not Detect) Ur Amphetamines Screen (Not Detect) U Benzodiazepines Scrn (Not Detect) Urine Cocaine Screen (Not Detect) U Marijuana (THC) Screen (Not Detect) Ethyl Alcohol mg/dL Independent Interpretation I performed an independent interpretation of an: EKG Interpretation: Rate: 93 Rhythm: NSR [place]: normal Normal P waves. Normal ARTEMIO. Normal QRS complex. ST T wave : normal no LUIGI, inverted t wave V1 qTC: 450 prior studies: no acute ischemia The study has been interpreted contemporaneously by me. . Independent Historian Clinical information obtained from an independent historian. History obtained from or confirmed by: Parent External Record Review External record reviewed: Inpatient record Discharge Plan Discharge Clinical Impression: Suicidal ideation Intentional overdose Qualifiers: Encounter type: initial encounter Qualified Code(s): T50.902A - Poisoning by unspecified drugs, medicaments and biological substances, intentional self-harm, initial encounter Patient Disposition: Home, Self-Care Instructions: Adult Overdose (ED), Suicide Prevention (ED) Additional Instructions: follow up with prescriber and therapist. labs reassuring today return for any worsening symptoms or concerns please adhere to the safety plan and contract if you cannot then please return for services Prescriptions: No Action lamotrigine 25 mg tablet 200 mg PO BEDTIME bupropion HCl 300 mg tablet extended release 24 hr 300 mg PO DAILY Patient Comments: pt is supposed to be on 450mg but reports it was making her feel worse so she brought herself back down to 300mg Interventions: [place]-Suicide Risk Severity Scale Last Done: 01/08/24 12:00 Print Language: Bulgarian
[2024-01-08 11:27] VITALS: BP 148/92; PULSE 93; RESP 16; TEMP 36.8; O2SAT 98; BMI 21.1
--- NOTE | 2024-01-08 11:27 | ECG_ITS ---
Test Reason : overdose Blood Pressure : / mmHG Vent. Rate : 093 BPM Atrial Rate : 093 BPM P-R Int : 174 ms QRS Dur : 080 ms QT Int : 362 ms P-R-T Axes : 060 057 042 degrees QTc Int : 450 ms Normal sinus rhythm Normal ECG When compared with ECG of 24-JUL-2021 13:59, Vent. rate has increased BY 32 BPM Referred By: Becky Swift Electronically Signed By:Pranav Dewitt
[2024-01-08 12:00] VITALS: BP 120/68; PULSE 93; RESP 19; TEMP 37.2; O2SAT 100
[2024-01-08 12:02] LABS: MANUAL DIFF FLAG NO
--- OUTSIDE RECORDS SUMMARY | 2024-01-08 12:07 | XMS_ITS | Continuity of Care Document ---
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 Stretcher Name Role Phone Debbie Kimble MD Primary Care Physician Encounter [facility] Date(s): 03/11/20 - 03/11/[address] [id number]- [facility] Discharge Disposition: A-D/C Home Attending Physician: Ivelisse Rosa MD Admitting Physician: Ivelisse Rosa MD Referring Physician: Not on Staff, Referring MD Allergies, Adverse Reactions, Alerts No Known Medication Allergies Medications carBAMazepine 400 mg oral tablet, extended release 400 mg, 1, tablet, By Mouth, Daily, Refills 0, Maintenance, 03/11/20 14:51:00 EDT Start Date: 03/11/20 Status: Ordered famotidine 10 mg oral tablet 1 tablet = 10 mg, By Mouth, 2 times a day, # 28 tablet, 0 Refills, Maintenance, 03/11/20 19:01:00 EDT, Tablet, [id number], 170, cm, 03/11/20 14:44:00 EDT, Height, 79.1, kg, 03/11/20 14:44:00 EDT, Dry Weight Start Date: 03/11/20 Status: Ordered Strattera 18 mg oral capsule 1 capsule = 18 mg, By Mouth, Daily in AM, 0 Refills, Maintenance, 03/11/20 14:52:00 EDT Start Date: 03/11/20 Status: Ordered Vital Signs Most recent to oldest [Reference Range]: 1 2 Height 170 cm (03/11/20 7:06 PM) 170 cm (03/11/20 2:44 PM) Weight 79.1 kg (03/11/20 2:44 PM) Oxygen Saturation [94-100 %] 100 % (03/11/20 7:06 PM) 100 % (03/11/20 2:44 PM) Pulse Rate [55-90 bpm] 83 bpm (03/11/20 7:06 PM) 93 bpm *H* (03/11/20 2:44 PM) Blood Pressure [90-138/55-84 mm Hg] 98/8 7mm Hg (03/11/20 7:06 PM) 141/75mm Hg *H* (03/11/20 2:44 PM) Respiratory Rate [16-30 br/min] 16 br/mi n (03/11/20 2:44 PM) Temperature [96.8-100.4 DegF] 99 DegF (03/11/20 2:44 PM) Mode of Delivery (Oxygen) Room air (03/11/20 7:06 PM) Room air (03/11/20 2:44 PM) Blood pressure sites Arm, left (03/11/20 7:06 PM) Dry Weight 79.1 kg (03/11/20 2:44 PM) Weight Obtained Via Standing scale (03/11/20 2:44 PM) Social History Social History Type Response Smoking Status Never (less than 100 in lifetime) entered on: 03/11/20 Sex
[2024-01-08 12:15] LABS: Alanine Aminotransferase 9 U/L (0-31); Albumin Level 5.1 g/dL (3.5-5.0); Alkaline Phosphatase 35 U/L (39-117); Anion Gap 13 (12-20); Aspartate Amino Transferase 12 U/L (5-31); Bilirubin Total 0.4 mg/dL (0.0-1.0); Blood Urea Nitrogen 6 mg/dL (9-16); Calcium 10.4 mg/dL (8.4-10.2); Carbon Dioxide 26 mmol/L (22-29); Chloride 105 mmol/L (96-108); Creatinine Clr Calc Pharmacy 110.3; Estimated Glomerular Filt Rate > 60; Ethanol < 10 mg/dL; Glucose Random 87 mg/dL (60-115); Lipase 12 U/L (8-78); Potassium 3.8 mmol/L (3.3-5.1); Sodium 140 mmol/L (135-145); Total Protein 7.8 g/dL (6.5-8.0)
[2024-01-08 12:17] LABS: Acetaminophen LAB < 3 mcg/mL (<30); Salicylate < 5.0 mg/dL (15-30)
[2024-01-08 12:19] LABS: Basophils Absolute Auto 0.1 X10*3/uL (0.0-0.2); Basophils Percent Auto 0.8 % (0-2); Eosinophils Percent Auto 0.7 % (0-4); Hematocrit 34.7 % (37.0-47.0); Hemoglobin 11.5 g/dl (12.0-16.0); Imm Gran Abs Auto 0.01 X10*3/uL (0.00-0.03); Imm Gran Pct Auto 0.2 % (0.0-0.4); Lymphocytes Absolute Auto 1.3 X10*3/uL (1.2-4.9); Lymphocytes Percent Auto 22.2 % (20-40); Mean Corpuscular HGB Conc 33.1 g/dl (31.0-35.0); Mean Corpuscular Hemoglobin 29.2 pg (27.0-33.0); Mean Corpuscular Volume 88.1 fL (80.0-98.0); Mean Platelet Volume 9.8 fL (9.4-12.3); Monocytes Absolute Auto 0.4 X10*3/uL (0.1-1.2); Monocytes Percent Auto 7.3 % (2-11); Neutrophils Absolute Auto 4.2 x10*3/uL (2.0-8.3); Neutrophils Percent Auto 68.8 % (45-73); Platelet Count 270 X10*3/uL (160-400); Red Blood Count 3.94 X10*6/uL (4.20-5.50); Red Cell Distribution Width 13.2 % (11.0-16.0)
[2024-01-08] MEDS: ondansetron HCL 4 MG/2 ML VIAL IVPUSH (12:25)
[2024-01-08] MEDS: Activated charcoaL 50 GM/240 ML ORAL.SUSP PO (12:25)
[2024-01-08] MEDS: 0.9 % Sodium Chloride 1,000 ML 999 ML IV (12:26)
[2024-01-08 13:35] LABS: Acetaminophen LAB < 3 mcg/mL (<30); Alanine Aminotransferase 7 U/L (0-31); Albumin Level 4.5 g/dL (3.5-5.0); Alkaline Phosphatase 34 U/L (39-117); Anion Gap 12 (12-20); Aspartate Amino Transferase 11 U/L (5-31); Bilirubin Direct 0.1 mg/dL (0.0-0.5); Bilirubin Total 0.4 mg/dL (0.0-1.0); Blood Urea Nitrogen 6 mg/dL (9-16); Calcium 9.2 mg/dL (8.4-10.2); Carbon Dioxide 26 mmol/L (22-29); Chloride 105 mmol/L (96-108); Creatinine Clr Calc Pharmacy 114.8; Estimated Glomerular Filt Rate > 60; Glucose Random 134 mg/dL (60-115); Potassium 3.7 mmol/L (3.3-5.1); Salicylate < 5.0 mg/dL (15-30); Sodium 139 mmol/L (135-145)
[2024-01-08 14:00] VITALS: BP 115/70; PULSE 91; RESP 18; TEMP 36.8; O2SAT 97
[2024-01-08 15:45] LABS: Appearance Urine Clear; Color Urine Yellow; Glucose Urine UA Negative (Negative); Leukocyte Esterase Urine Negative (Negative); Nitrite Urine Negative (Negative); Specific Gravity - Urine <= 1.005 (1.005-1.025); UMIC TRIGGER UACC YES; Urine Blood Trace (Negative); Urine Ketones Trace mg/dL (Negative); Urine Protein Negative (Neg-Trace)
[2024-01-08 15:46] LABS: UPreg QC Valid YES; Urine Pregnancy NEGATIVE (NEGATIVE)
[2024-01-08 15:48] LABS: Bacteria Urine None Seen (None Seen); Hyaline Casts Urine 0-2 /LPF (0-2); WBC Urine 0-5 /HPF (0-5)
[2024-01-08 15:56] LABS: Amphetamine Screen Urine Not Detected (Not Detect); Barbiturates, Urine Not Detected (Not Detect); Benzodiazepines Screen Urine Not Detected (Not Detect); Buprenorphine Scr Not Detected (Not Detect); Cannabinoid Screen Urine POSITIVE (Not Detect); Cocaine Screen Urine Not Detected (Not Detect); Fentanyl, urine Not Detected (Not Detect); Methadone Screen, Urine Not Detected (Not Detect); Opiate Screen Urine Not Detected (Not Detect); Oxycodone Screen Urine Not Detected (Not Detect); Phencyclidine Screen Urine Not Detected (Not Detect)
[2024-01-08 16:00] VITALS: BP 115/70; PULSE 86; RESP 18; TEMP 36.8; O2SAT 100
[2024-01-08 16:00] LABS: Alanine Aminotransferase 8 U/L (0-31); Albumin Level 4.4 g/dL (3.5-5.0); Alkaline Phosphatase 31 U/L (39-117); Aspartate Amino Transferase 10 U/L (5-31); Bilirubin Direct < 0.2 mg/dL (0.0-0.5); Bilirubin Total 0.2 mg/dL (0.0-1.0)
[2024-01-08 16:27] LABS: Acetaminophen LAB < 3 mcg/mL (<30)
--- NOTE | 2024-01-08 18:03 | PC.NURSE ---
Assumed care of patient at 1700, patient comes in from home s/p intentional Tylenol overdose. patient reports SI, denies HI/AH/VH. Patient reports she becomes manic when she uses marijuana. Family reports that she has been to support groups, has been inpatient and has participated in outpatient therapy for similar presentations in the past. Patient is calm and cooperative, alert and oriented x4, speech clear, respirations even and unlabored, no apparent distress noted. patient has been medically cleared and has seen care team. Pending disposition at this time
[2024-01-08 18:48] VITALS: BP 112/68; PULSE 84; RESP 14; TEMP 36.6; O2SAT 97
== END 2024-01-08 18:50 | disposition home or self-care (01) ==
PROVIDERS: Physician Assistant Medical; Emergency Provider Emergency Medicine; PCP Nurse Practitioner Family
DX: F30.2 Manic episode, severe with psychotic symptoms (principal); T39.1X2A Poisoning by 4-Aminophenol derivatives, intentional self-harm, initial encounter; Y92.098 Other place in other non-institutional residence as the place of occurrence of the external cause; F12.90 Cannabis use, unspecified, uncomplicated; R45.851 Suicidal ideations; Z71.51 Drug abuse counseling and surveillance of drug abuser; Z79.899 Other long term (current) drug therapy
CPT/HCPCS: 36415; 71046; 80048; 80053; 80076; 80143; 80179; 80307; 81001; 81025; 83690; 83735; 85025; 93005; 96361; 96374; 99285; J2405; S9485

== ENCOUNTER → 2024-01-08 11:27 | Outpatient (BNV) | payer OTHER, SELFPAY | PROVIDERS: Emergency Provider Emergency Medicine; PCP Nurse Practitioner Family; Visit Provider Internal Medicine Cardiovascular Disease | DX: T39.1X1A Poisoning by 4-Aminophenol derivatives, accidental (unintentional), initial encounter (principal) | CPT/HCPCS: 93010 ==